=== PATIENT | female | born 1985 | race Caucasian/White ===

== ENCOUNTER 2018-07-05 11:18 | Inpatient (IN) | payer OTHER ==
--- NOTE | 2018-07-05 11:38 | EDPHY ---
H & P Stated Complaint: PS/SA Source: Patient Exam Limitations: Clinical condition - Personal History LMP (Females 10-55): 15-21 Days Ago Current Tetanus/Diphtheria Vaccine: Yes - Medical/Surgical History Hx Asthma: No Hx Chronic Respiratory Disease: No Hx Diabetes: No Hx Cardiac Disease: No Hx Renal Disease: No Hx Cirrhosis: No Hx Alcoholism: No Other PMH: SA, depression, - Social History Smoking Status: Never smoked Time Seen by Provider: 07/05/18 11:30 HPI/ROS: HPI: This is a 33-year-old female who presents with Chief Complaint: Suicide attempt, cut left forearm Location:psych Quality: Suicide attempt Duration: Today Signs and Symptoms: No bleeding, no radiation, no numbness, no weakness, no tingling, no incontinence, no decreased range of motion, no swelling, no pain, no fever Timing: Acute on chronic Severity: Moderate Context: Patient presents to the emergency room at the urging of the urgent care for intentional self-harm of cutting her left forearm this morning. Patient has a history of major depression and previous suicide attempts. Patient reports that she has feelings of hopelessness and grief. She is very self critical. She reports that she intentionally cut herself to cause harm. Reports tetanus is up-to-date. Denies any decreased range of motion, paresthesias, radiculopathy. no auditory hallucinations, no visual hallucinations, + suicidal ideation with a plan, no homicidal ideation, no paranoia Modifying Factors: None Comment: ROS: A comprehensive 10 system review of systems is otherwise negative aside from elements mentioned in the history of present illness. MEDICAL/SURGICAL/SOCIAL HISTORY: Medical history: Depression, suicide attempts, hypothyroidism. LMP 2-3 weeks ago. Surgical history: Denies Social history: Nonsmoker. CONSTITUTIONAL: Overweight, tidy, adult white female, awake and alert, no obvious distress HEENT: Atraumatic and normocephalic, PERRL, EOMI. Nares patent; no rhinorrhea; no nasal mucosal edema. Tympanic membranes clear. Oropharynx clear, no exudate and moist pink mucosa. Airway patent. No lymphadenopathy. No meningismus. Cardiovascular: Normal S1/S2, tachycardia, regular rhythm, without murmur rub or gallop. PULMONARY/CHEST: Symmetrical and nontender. Clear to auscultation bilaterally. Good air movement. No accessory muscle usage. ABDOMEN: Soft, nondistended, nontender, no rebound, no guarding, no peritoneal signs, no masses or organomegaly. No CVAT. EXTREMITIES: 2/2 pulses, strength 5/5, no deformities, no clubbing, no cyanosis or edema. NEUROLOGICAL: no focal neuro deficits. GCS 15. SKIN: Warm and dry, no erythema. no rash. Good capillary refill. PSYCH: Angry at times, Fair eye contact, no flight of ideas, organized thought process, fair insight and judgment, no auditory hallucinations, no visual hallucinations, + suicidal ideation with a plan, no homicidal ideation, no paranoia (Judy Harkins) Constitutional: Initial Vital Signs Temperature (C) 36.5 C 07/05/18 11:20 Heart Rate 133 H 07/05/18 11:20 Respiratory Rate 18 07/05/18 11:20 Blood Pressure 150/105 H 07/05/18 11:20 O2 Sat (%) 98 07/05/18 11:20 Allergies/Adverse Reactions: No Known Allergies Allergy (Unverified 07/05/18 11:24) Home Medications: Medication Instructions Recorded ARIPiprazole [Abilify 5 mg (*)] 5 mg PO DAILY 07/05/18 Levothyroxine [Synthroid 75 mcg 75 mcg PO DAILY06 07/05/18 (*)] Norgestimate-Ethinyl Estradiol 1 each PO HS 07/05/18 [Mononessa 28 Tablet] RX: Benztropine Mesylate 0.5 mg PO DAILY PRN 07/05/18 Sertraline HCl [Zoloft 100mg (*)] 200 mg PO HS 07/05/18 Medical Decision Making Procedures: Procedure: Laceration repair. Verbal consent was obtained from the patient. The superficial, simple, 4 cm, vertical laceration on the volar aspect of the left forearm was anesthetized in the usual fashion using 4 cc of 1% lidocaine with epinephrine. The wound was irrigated, draped and explored to its base with a gloved finger. There were no deep structures involved. No tendon injury was identified. The wound was repaired with #6, 5 0 Prolene in simple interrupted pattern. Good hemostasis was achieved and patient tolerated procedure well. Good hemostasis was achieved and clean sterile dressing applied. The procedure was performed by myself. (Judy Harkins) ED Course/Re-evaluation: Placed on M1 hold upon arrival due to severe major depression with self inflicted injury and suicide attempt. Labs and UDS ordered. Local anesthesia provided to left forearm superficial laceration; copiously irrigated; laceration repaired Tetanus is up-to-date. No signs of neurovascular compromise/tenting of skin/compartment syndrome/ extremities and joints examined above and below area of concern and are neurovascularly intact. 1400: Labs reviewed and grossly unremarkable. Urine drug screen negative. 1410: Spoke with mental health provider who completed evaluation. 1520: Patient has been accepted at [facility]. Plan is to transfer the patient. 1616: Accepted by Saige Redd. EMTALA completed. This patient was seen under the supervision of my secondary supervising physician. I evaluated care for this patient with attending. Discussed this patient with Dr. Constantino. (Judy Harkins) Differential Diagnosis: Differential diagnosis includes but is not limited to major depression, anxiety disorder, schizophrenia, bipolar disorder, intoxicant use, suicidal ideation, psychosis, dorcas. (Judy Harkins) Other Provider: Care assumed from Vira at 3:00 p.m. With plan for mental health evaluation. PHYSICIAN DOCUMENTATION: The patient was evaluated and managed by the Physician Chief Writer and myself. I have reviewed the chart and agree with the findings and plan of care as documented. In addition, I examined the patient myself at 1525. History confirmed as self-inflicted arm laceration. Physical findings as follows: Normal motor sensory and vascular in the left hand. Plan for transfer to [facility] for inpatient psychiatric but not available at [facility], stable for transfer. I am the secondary supervising physician. (Lopez Eddy) - Data Points Laboratory Results: Laboratory Results 07/05/18 13:00 07/05/18 13:00 07/05/18 07/05/18 07/05/18 13:15 13:00 13:00 WBC RBC Hgb Hct MCV MCH MCHC RDW Plt Count MPV Neut % (Auto) Lymph % (Auto) [place] % (Auto) Eos % (Auto) Baso % (Auto) Nucleat RBC Rel Count Absolute Neuts (auto) Absolute Lymphs (auto) Absolute Monos (auto) Absolute Eos (auto) Absolute Basos (auto) Absolute Nucleated RBC Immature Gran % Immature Gran # Sodium Potassium Chloride Carbon Dioxide Anion Gap BUN Creatinine Estimated GFR Glucose Calcium TSH 1.800 uIU/mL uIU/mL (0.465-4.680) Beta HCG, Qual NEGATIVE Urine Opiates Screen NEGATIVE (NEGATIVE) Urine Barbiturates NEGATIVE (NEGATIVE) Ur Phencyclidine Scrn NEGATIVE (NEGATIVE) Ur Amphetamine Screen NEGATIVE (NEGATIVE) U Benzodiazepines Scrn NEGATIVE (NEGATIVE) Urine Cocaine Screen NEGATIVE (NEGATIVE) U Marijuana (THC) Screen NEGATIVE (NEGATIVE) Ethyl Alcohol 07/05/18 07/05/18 13:00 13:00 WBC 13.81 10^3/uL H 10^3/uL (3.80-9.50) RBC 5.11 10^6/uL 10^6/uL (4.18-5.33) Hgb 14.4 g/dL g/dL (12.6-16.3) Hct 44.5 % % (38.0-47.0) MCV 87.1 fL fL (81.5-99.8) MCH 28.2 pg pg (27.9-34.1) MCHC 32.4 g/dL g/dL (32.4-36.7) RDW 13.2 % % (11.5-15.2) Plt Count 311 10^3/uL 10^3/uL (150-400) MPV 9.1 fL fL (8.7-11.7) Neut % (Auto) 85.3 % H % (39.3-74.2) Lymph % (Auto) 11.1 % L % (15.0-45.0) [place] % (Auto) 2.8 % L % (4.5-13.0) Eos % (Auto) 0.1 % L % (0.6-7.6) Baso % (Auto) 0.3 % % (0.3-1.7) Nucleat RBC Rel Count 0.0 % % (0.0-0.2) Absolute Neuts (auto) 11.80 10^3/uL H 10^3/uL (1.70-6.50) Absolute Lymphs (auto) 1.53 10^3/uL 10^3/uL (1.00-3.00) Absolute Monos (auto) 0.38 10^3/uL 10^3/uL (0.30-0.80) Absolute Eos (auto) 0.01 10^3/uL L 10^3/uL (0.03-0.40) Absolute Basos (auto) 0.04 10^3/uL 10^3/uL (0.02-0.10) Absolute Nucleated RBC 0.00 10^3/uL 10^3/uL (0-0.01) Immature Gran % 0.4 % % (0.0-1.1) Immature Gran # 0.05 10^3/uL 10^3/uL (0.00-0.10) Sodium 136 mEq/L mEq/L (135-145) Potassium 3.7 mEq/L mEq/L (3.5-5.2) Chloride 104 mEq/L mEq/L (97-110) Carbon Dioxide 21 mEq/l L mEq/l (22-31) Anion Gap 11 mEq/L mEq/L (6-14) BUN 15 mg/dL mg/dL (7-23) Creatinine 0.9 mg/dL mg/dL (0.6-1.0) Estimated GFR > 60 Glucose 100 mg/dL mg/dL (70-100) Calcium 9.5 mg/dL mg/dL (8.5-10.4) TSH Beta HCG, Qual Urine Opiates Screen Urine Barbiturates Ur Phencyclidine Scrn Ur Amphetamine Screen U Benzodiazepines Scrn Urine Cocaine Screen U Marijuana (THC) Screen Ethyl Alcohol < 10 mg/dL mg/dL (0-10) Departure - Departure Disposition: [facility] IP Clinical Impression: Severe major depression without psychotic features, Deliberate self-cutting, Verbalizes suicidal thoughts Laceration of left forearm without complication Qualifiers: Encounter type: initial encounter Qualified Code(s): S51.812A - Laceration without foreign body of left forearm, initial encounter Condition: Fair Instructions: Care For Your Stitches (ED), Laceration (ED) Additional Instructions: Keep the dressing dry and in place for 48 hours. After 48 hours, you may remove the dressing; wash the site daily with mild soap and water; then pat dry. Take Tylenol 650 mg every 4 hours and/or Ibuprofen 600 mg every 8 hours with food as needed for pain. Wound Care Follow-Up: Removal of sutures in [ 10-14 ] days. Suture removal is complimentary in uncomplicated cases. Infection or abnormal findings would require reevaluation by the MD. In that case, you may be billed. Referrals: Jessica Tomlinson MD [Primary Care Provider] - As per Instructions
[2018-07-05 13:09] LABS: PLATELET COUNT 311 10^3/uL (150-400)
--- NOTE | 2018-07-05 15:27 | PDCONSULT ---
Director Religious Education Note: MEDICINE HISTORY AND PHYSICAL CC: suicide attempt HPI: 33yo F with severe depression, hypothyroidism presents from urgent care after suicide attempt via cutting left forearm. Laceration was repaired in the ED. Upon my discussion with patient, she is crying. She denies any recent fevers , chills, shortness of breath, chest pain, leg swelling. n/v/d. She has been taking her synthroid without recent dose adjustments. Past Medical History: severe depression with previous suicide attempts, hypothyroidism Past Surgical History: eye surgery Allergies: NKDA Medications: Please refer to EMR Social History: Boyfriend at bedside. Denies alcohol, tobacco, illicits. Family History: Non-contributory ROS: 10 point negative except per HPI Vitals: Reviewed. Tachycardic, mild hypertension on arrival. Physical Exam: Gen - crying but no significant distress; HEENT - anicteric sclera, eomi, perrl; Neck - no adenopathy; CV: tachycardic, no murmur; Lungs: ctab, no wheezes; Abdomen - soft, nt, nd; MSK - no joint effusions or erythema; Skin - no rashes; Neuro - no focal deficits; Psych - as above Labs: Reviewed. Normal CBC and BMP. Negative utox. Assessment/Plan: 33yo F with severe depression with prior suicide attempts, hypothyroidism presents from urgent care after suicide attempt. 1. Suicide attempt: Placed on M1 hold. Plan for admission to behavioral health. 2. Severe depression: Medication management per psychiatry team. 3. Tachycardia: Regular on exam and no murmurs. She is clearly upset when these vitals were taken and I suspect this is etiology. No further evaluation warranted. 4. Hypothyroidism: Recommend checking TSH (don't see one done recently). Otherwise continue levothyroxine replacement once med rec complete. Thank you for this consult. Medicine will sign off, please page if questions arise.
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
--- NOTE | 2018-07-05 16:20 | ASMTTCLDSP ---
TLC Discharge Disposition Disposition: Answers: Admit Disposition Notes: Notes: In consultation with [facility] ED Physician, Jordi Constantino and PA, Judy Harkins it was concurred that pt. does appear to meet 27-65 criteria requiring psychiatric hospitalization as pt. does appear to be an imminent risk of harm to self due to a mental health condition. Pt was informed of inpt. admission due to concerns for her safety and need for additional supervision. Pt was read her pt. rights. Discharge Concerns/Recommendations: Notes[facility] Answers: Yes Inpatient Behavioral Health Prohibited Belongings List while in the ED? For inpatient [facility] admission, the following psychiatrist agreed to accept patient for admission to Behavioral Health ([facility] Type of Hold: Answers: /72-hour Hold Date Signed: 07/05/2018 04:19 PM Electronically Signed By:Kristen Angela
--- NOTE | 2018-07-05 17:38 | ASMTLCPROG ---
Notes Note: Notes: Barrington called back TLC Obtained Auth information and is forwarding to [facility] team. Athorized review on the by Bernardo [phone] ext. [phone] Authorization #[id number] Date Signed: 07/05/2018 05:37 PM Electronically Signed By:Nazario Musa
[2018-07-05] MEDS ORDERED: LORazepam 0.5 MG TAB PO PRN (17:42)
[2018-07-05] MEDS ORDERED: NICOTINE POLACRILEX 2 MG GUM B PRN (17:42)
[2018-07-05] MEDS ORDERED: ACETAMINOPHEN 325 MG TAB PO PRN (17:42)
[2018-07-05] MEDS ORDERED: MAG HYDROX/AL HYDROX/SIMETH 30 ML UDCUP PO PRN (17:43)
[2018-07-05] MEDS ORDERED: MAGNESIUM HYDROXIDE 30 ML UDCUP PO PRN (17:43)
--- NOTE | 2018-07-05 17:45 | ASMTLCPROG ---
Notes Note: Notes: PT Rights and M1 Hold Fax attached for record. Date Signed: 07/05/2018 05:44 PM Electronically Signed By:Nazario Musa
[2018-07-05] MEDS ORDERED: OLANZapine 5 MG TAB PO PRN (17:46)
[2018-07-05] MEDS ORDERED: BENZTROPINE MESYLATE 1 MG TAB PO PRN (17:47)
[2018-07-05] MEDS: Norgestimate-Ethinyl Estradiol [Mononessa 28 Tablet] PO SCH (20:03)
[2018-07-05] MEDS: SERTRALINE HCL 100 MG TAB PO SCH (20:04)
[2018-07-06] MEDS: LEVOTHYROXINE 75 MCG TAB PO SCH (08:00)
--- NOTE | 2018-07-06 08:01 | ASMTBHMTP ---
JESUSITA Master Treatment Plan Master Treatment Plan Answers: Depressed Mood without for: Suicidal Ideation Date: 07/06/2018 Diagnosis on Admission: Major Depressive Disorder Expected length of stay: 3-5 Days Reason for admission: Notes: Per TLC Evaluation - Pt. is a 33 year old, single, female who self presented to the [facility] ED due to self-inflicted cut to her left forearm. Pts cuts required stitches. Per ED report pt presented at the urging of urgent care for intentional self-harm cutting her left forearm this morning. Pt has a hx of major depression and previous suicide attempts. Pt reports that she has feelings of hopelessness and grief and appeared very self-critical. Pt had reported she intentionally cut herself to cause harm. Pt. presented with no hallucinations, and positive for suicidal ideations with a plan. Pt denied homicidal ideations. Pt. was placed on a M1 hold by ED Physician. Per M1 hold pt. has a hx of major depression, previous suicide attempts, presents with worsening feelings of hopelessness, intentional self harm of cutting left forearm and suicidal thoughts. Patient's stated presenting problems: Notes: Pt. stated "cut myself and needed stiches". Patient's goals for treatment: Notes: Pt. stated to gain "coping stratagies". Patient's strengths: Notes: Pt. stated "make friends easily" Identify supports outside of hospital: Notes: Pt stated her , mom, dad and dog. Pt. reports having a therapist and psychiatrist Discharge criteria: Notes: Suicidal ideation will resolve and patient will have a plan to safely manage recurrent suicidal ideation. Initial disposition plan/considerations: Notes: Pt. stated she plans to return home and work Master Treatment Plan Required Signatures Psychiatrist signature: Answers: Psychiatrist: RN on-shift signature: Answers: RN: Patient signature: Answers: Patient: Date Signed: 07/06/2018 08:01 AM Electronically Signed By:Niki Hamilton
[2018-07-06] MEDS ORDERED: ARIPiprazole 5 MG TAB PO SCH (09:00)
--- NOTE | 2018-07-06 10:45 | ASMTCMCOM ---
CM Note CM Note Notes: Pt. and CC completed MTP and placed in pt's chart. Pt. stated stated this is her first hospitalization. Pt. stated she doesn't drink alcohol often. Pt. stated she does not use THC. Pt. denied all other substance use. Pt. stated she has a therapist, Feli Pelaez, and psychiatrist, Dr. Óscar Cuevas. Pt. stated she has a scheduled appointment with her therapist on Sunday (07/08) and an appointment with her psychiatrist the following Sunday (07/15). Pt. presents as alert, calm, friendly, good eye contact, and cooperative. Staff report pt. sleeping 8.5 hours and being medication compliant. Date Signed: 07/06/2018 10:45 AM Electronically Signed By:Niki Hamilton
--- NOTE | 2018-07-06 16:25 | PDMN ---
Medical Necessity Medical necessity: Pt meets inpt criteria per MD order and [facility] [id number], Major Depressive Disorder, Adult: Inpatient Care, 3 days. 33 y/o w/hx depression and anxiety admitted w/major depressive disorder, recurrent, severe and unspecified anxiety disorder, on M1 hold due to risk of harm to self/intentional self harm of cutting L forearm and suicidal thoughts requiring inpt psychiatric hospitalization.
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
[2018-07-06] MEDS: Norgestimate-Ethinyl Estradiol [Mononessa 28 Tablet] PO SCH (19:06)
[2018-07-06] MEDS: SERTRALINE HCL 100 MG TAB PO SCH (20:24)
[2018-07-07] MEDS: ARIPiprazole 5 MG TAB PO SCH (08:30)
[2018-07-07] MEDS: LEVOTHYROXINE 75 MCG TAB PO SCH (08:30)
--- NOTE | 2018-07-07 11:47 | ASMTBHDC ---
Notes Note: Notes: Pt. reports feeling "alright, just don't want to be here". Pt. stated she slept "pretty good". Pt. reports getting enough to eat and attending groups. Pt. reports taking Abilify in the past and it working "good" for her. Pt. denied having any issues while on the unit. Pt. denied SI, HI, AVH and paranoia. Pt. reports having a therapist appointment on Sunday at 1pm and an appointment with her provider on Saturday 07/15 at 10:00am. Pt. signed ROIs for her providers. Pt. presents as alert, calm, friendly, good eye contact, groomed, and cooperative. Staff report pt. sleeping 8 hours and being medication compliant. CC to call and confirm pt's follow up appointments. Date Signed: 07/07/2018 11:47 AM Electronically Signed By:Niki Hamilton
--- NOTE | 2018-07-07 14:49 | ASMTBHFAM ---
Notes Note: Notes: CC spoke with pt's SUDARSHANDarion [phone]. SUDARSHAN stated pt "seems to be doing better". SUDARSHAN stated he would like to get more involved with pt's treatment. SUDARSHAN stated pt. sees a therapist who is not in their insurance network, adding pt's parents pay for pt to see this therapist. SUDARSHAN stated pt. has been on a waitlist to see a therapist through [facility], adding pt has 3-5 months more before being able to see someone. SUDARSHAN stated he has no concerns about the pt coming home. SUDARSHAN stated he is concerned about pt's medication. SUDARSHAN stated pt. "didn't like Abilify" adding it made the pt "super anxious". SUDARSHAN stated pt became sick while taking Latuda and [facility]. SUDARSHAN stated he will be available all day Sunday. Date Signed: 07/07/2018 02:49 PM Electronically Signed By:Niki Hamilton
--- NOTE | 2018-07-07 15:08 | SOAPPROG ---
SOAP Progress Note Assessment/Plan: Assessment: 33 yo woman with h/o depression admitted after self-inflicted lacs to left forearm requiring sutures. Patient had recent med changes and felt "frustrated" that meds weren't making her feel better. Plan: 07/07/18 15:08 1. Patient reports no SE's from increased dose of Abilify this AM. She denies restlessness, agitation and akathisia. 2. Patient slept "better" last night. 3. Patient denies any SI/HI. 4. CC to provide patient referrals for therapist that she can see more regularly than her current therapist. 5. Hold expires tomorrow. Patient has f/u with current therapist on 07/08 at 1300. 6. Plan to d/c tomorrow in time for patient to go to outpatient appointment. Subjective: Patient reports feeling "better" today after "good" night's sleep. Denies feeling sad, depressed, helpless, hopeless and anxious. She denies any SI/HI. She denies any SE's from increased dose of Abilify, states she would like to continue on this dose. Patient would like to discharge tomorrow so she can go to outpatient appointment with current therapist at 1pm. Objective: Vital Signs Temp Pulse Resp BP Pulse Ox 36.7 C 94 20 154/68 H 96 07/07/18 06:00 07/07/18 06:00 07/07/18 06:00 07/07/18 06:00 07/07/18 06:00 MSE: Affect: Euthymic Mood: "Better" TP: Linear TC: Denies any SI/HI Insight /Judgment: Fair - Time Spent With Patient Time Spent With Patient: 15" - Pending Discharge Pending Discharge Within 24 Hours: Yes Pending Discharge Within 48 Hours: No Pending Discharge Date: 07/08/18 (D/C tomorrow ) Pending Discharge Time: 11:00 ICD10 Worksheet Patient Problems: Problems Problem Status Onset Deliberate self-cutting Acute Laceration of left forearm without complication Acute Severe major depression without psychotic features Acute Verbalizes suicidal thoughts Acute
[2018-07-07] MEDS: Norgestimate-Ethinyl Estradiol [Mononessa 28 Tablet] PO SCH (20:52)
[2018-07-07] MEDS: SERTRALINE HCL 100 MG TAB PO SCH (20:53)
[2018-07-08 06:36] VITALS: BP 137/89
[2018-07-08] MEDS: ARIPiprazole 5 MG TAB PO SCH (08:22)
[2018-07-08] MEDS: LEVOTHYROXINE 75 MCG TAB PO SCH (08:22)
--- NOTE | 2018-07-08 13:00 | BDS ---
[f rep st] BEHAVIORAL HEALTH DISCHARGE SUMMARY REASON FOR ADMISSION: Patient is a 33-year-old woman who presented to the [facility] ED due to self-inflicted lacerations on her left forearm. The patient had originall y gone to Urgent Care and was recommended to go to the ED. Patient stated that she felt had been fee ling hopeless and helpless recently. She does have a history of self-harm, but she has never intende d to kill herself. She states that her current lacerations were due to stress and frustration and th at she did not mean to . I states that she has been feeling frustrated recently due to recent med ication change and feeling like things were "not getting any better" in her life. ADMITTING DIAGNOSES: 1. Major depressive disorder, recurrent, severe, without psychotic features. 2. Limited social support, stressful relationship, not enjoying work. PHYSICAL EXAMINATION: Done by Dr. Efren Murray. There were no acute abnormal physical findings. She does have a prior history of hypothyroidism and eye surgery. LAB DATA: White cell count was 13.81, hemoglobin 14.4, hematocrit 44.5, platelet count 311. Sodium 136, potassium 3.7, chloride 104, BUN 15, creatinine 0.9, glucose 100, TSH 1.8. Beta hCG was negativ e. Urine drug screen was negative for all drugs of abuse. HOSPITAL COURSE: When this MD met with the patient on 07/06/2018, patient denied having th oughts, plans, or intents to hurt herself or anyone else. She said that she was "stressed out" and s he also was feeling "frustrated, " and cut herself in order to relieve stress. She says she has done it in the past, "when I have too many emotions or not any emotions." Patient states that she does n ot cut with the intent of killing herself. She states that she wants to live. After she was admitte d to the inpatient Behavioral Health Services Unit, she denied feeling sad, depressed, helpless, hope less, worthless, or anxious. She had a brighter affect on Sunday and Sunday. She was future orien cole. She states that she was feeling more hopeful about the future. She did request a medication change. She is currently taking Abilify and Zoloft. She was taking the Abilify as augmentation for depression. She has no prior history of bipolar disorder or does not re port any manic episodes in the past. Her Abilify was increased from 5 mg daily to 7.5 mg daily. On 07/07/2018, patient reported that she felt "better" on the increased dose of medication. She denied any side effects from the medication, including denying restlessness, agitation, akathisia. She said that she was feeling more optimistic about the future and was looking forward to getting bassam k into regular therapy treatment. She admitted that she had not been able to see a therapist regular ly for a long time. She was seeing a woman, Feli Pelaez, but could only afford to see her once a month. She stated that she had been on the [facility] for [facility] for several month s and that she was #145 on the wait list. This MD encouraged the patient to look at alternatives for therapists that she could see more regularly, at least once a week. The patient thought that would be a good idea. She said that she felt better in the past when she was getting regular therapy, in a ddition to taking medications. The child care centre director provided the patient with a referral to 4 therap ists in the community who take her insurance. The child care centre director also spoke with the patient's nu amlcolm who agreed that the patient did better when she was in regular therapy. Both patient and her anna wills agreed that they would make calls to the 4 therapist referrals and schedule an appointment as s oon as possible. When this MD met with the patient and the treatment team on day of discharge, she had a bright affect . She was smiling. She said that she was feeling much better. She denied any sadness, depression, anxiety, and denied any feelings of helplessness, hopelessness, or worthlessness. She denied having any thoughts, plans, or intents to hurt herself or anyone else. She was future oriented and she expl ained to the treatment team that she and her had talked and that they were working on their r elationship and working on ways that the patient could manage stress better and cope with problems at work, and she said that she was interested in getting back into therapy to talk about those issues i n more detail. DISCHARGE MEDICATIONS: The patient was discharged with no prescriptions because she has full bottles of Abilify, Zoloft, and levothyroxine at home, along with refills. [facility] She said that she would have enough to take the increased dose of Abilify wi thout running out of medications, so she did not request any prescriptions. DISCHARGE DIAGNOSES: 1. Major depressive disorder, recurrent, severe, without psychotic features. 2. Limited social support, conflict in her relationship stress at work. CONDITION AT DISCHARGE: The patient was in stable condition. She reported her mood was "good." She denies any thoughts plans, or intents to hurt herself or anyone else. She denied feeling depressed. ATTITUDE AT DISCHARGE: Patient said that she was feeling positive, optimistic, and looking forward t o the future. FOLLOWUP CARE: The patient has a followup appointment with her outpatient therapist on day of discha rge, 07/08/2018, at 1300. She also has a followup appointment with her outpatient prescriber, micheal Cuevas on 07/15/2018. /[id number]/MODL
== END 2018-07-08 11:05 | disposition home or self-care (01) | DRG 885 ==
LOC: BBEH 17:17
PROVIDERS: ADMIT Registered Nurse; ATTEND Registered Nurse
PROC: 0HQEXZZ Repair Left Lower Arm Skin, External Approach (ICD-10-PCS; principal; 2018-07-05)
DX: F33.2 Major depressive disorder, recurrent severe without psychotic features (principal); S51.812A Laceration without foreign body of left forearm, initial encounter; X78.8XXA Intentional self-harm by other sharp object, initial encounter; E03.9 Hypothyroidism, unspecified
CPT/HCPCS: 80305; G0480